=== PATIENT | male | born 1990 | race American Indian/Alaskan Native ===

== ENCOUNTER → 2020-02-08 | Outpatient (CLI) | payer OTHER ==
[~2020-02-08] MED LIST: Bactrim Ds Tab1 EACH PO; HYDACE5 PO; IBUP800 PO; META800 PO; QUET200 PO
[2020-02-08 13:34] LABS: BASOPHILS ABSOLUTE AUTO 0.02 K/mm3 (0.00-0.23); BASOPHILS PERCENT AUTO 0 % (0-2); EOSINOPHILS ABSOLUTE AUTO 0.08 K/mm3 (0.00-0.68); EOSINOPHILS PERCENT AUTO 1 % (0-6); Hematocrit 43.7 % (37.0-53.0); Hemoglobin 14.6 g/dL (13.5-17.5); IMMATURE GRAN ABSOLUTE AUTO 0.03 K/mm3 (0.00-0.10); IMMATURE GRAN PERCENT AUTO 0 % (0-1); LYMPHOCYTES ABSOLUTE AUTO 1.12 K/mm3 (0.84-5.20); LYMPHOCYTES PERCENT AUTO 14 % (21-46); MONOCYTES ABSOLUTE AUTO 0.65 K/mm3 (0.16-1.47); MONOCYTES PERCENT AUTO 8 % (4-13); Mean Corpuscular HGB Conc 33.4 g/dL (31.5-36.5); Mean Corpuscular Volume 93 fL (80-100); Mean Platelet Volume 9.4 fL (9.1-12.4); NEUTROPHILS ABSOLUTE AUTO 6.12 K/mm3 (1.96-9.15); NEUTROPHILS PERCENT AUTO 76 % (41-73); Platelet Count 282 K/mm3 (150-400); RDW Coefficient Variation 12.8 % (11.7-14.2); RDW Standard Deviation 43.8 fL (35.1-46.3); Red Blood Cell Count 4.71 M/mm3 (4.30-5.90); White Blood Cell Count 8.02 K/mm3 (4.00-11.30)
[2020-02-08 13:45] LABS: Alanine Aminotransfer (ALT/SGP 27 U/L (12-78); Albumin, Blood 4.3 g/dL (3.4-5.0); Albumin/Globulin Ratio 1.1 (0.8-1.8); Alk Phos 40 U/L (40-126); Anion Gap 8 mmol/L (6-16); Aspartate Aminotrans (AST/SGOT 18 U/L (12-37); Bilirubin, Total 0.3 mg/dL (0.1-1.0); Blood Urea Nitrogen 12 mg/dL (8-24); CO2, Blood 28 mmol/L (21-32); Chloride, Blood 102 mmol/L (98-108); Creatinine, Blood 1.34 mg/dL (0.60-1.20); Globulin, Blood 3.9 g/dL (2.2-4.0); Glomerular Filtration Rate >60 (60-); Glucose, Blood 93 mg/dL (70-99); Potassium, Blood 3.8 mmol/L (3.5-5.5); Sodium, Blood 138 mmol/L (136-145); Total Protein, Blood 8.2 g/dL (6.4-8.2)
[2020-02-09 21:06] LABS: CHLAMYDIA TRACHOMATIS, NAA Negative (Negative); NEISSERIA GONORRHOEAE, NAA Negative (Negative)
== END | disposition home or self-care (01) ==
LOC: LAB SHORT 13:30 → LAB EV 13:30
PROVIDERS: Physician Assistant
DX: N50.811 Right testicular pain (principal); R10.31 Right lower quadrant pain
CPT/HCPCS: 80053; 85025; 87086; 87491; 87591

== ENCOUNTER 2022-12-04 00:34 | Emergency (ER) | payer OTHER ==
[~2022-12-04] VITALS: Ht 177.8 cm; Wt 79.4 kg
[2022-12-04 01:03] VITALS: BP 127/83
[2022-12-04] MEDS ORDERED: CEPH500 PO (01:56)
== END 2022-12-04 02:12 | disposition home or self-care (01) ==
LOC: ER 00:34
DX: T15.02XA Foreign body in cornea, left eye, initial encounter (principal); L98.9 Disorder of the skin and subcutaneous tissue, unspecified; F17.210 Nicotine dependence, cigarettes, uncomplicated; X58.XXXA Exposure to other specified factors, initial encounter; Y92.89 Other specified places as the place of occurrence of the external cause; Y99.0 Civilian activity done for income or pay
CPT/HCPCS: 99283; A9270

== ENCOUNTER 2023-02-14 04:57 | Emergency (ER) | payer OTHER ==
[~2023-02-14] VITALS: Ht 180.3 cm; Wt 74.8 kg
[~2023-02-14 04:57] MED LIST changes: +CEPH500 PO
[2023-02-14] MEDS ORDERED: ERYT1OIN LEFTEYE (05:41)
[2023-02-14] MEDS ORDERED: Bactrim Ds Tab1 EACH PO (05:42)
[2023-02-14 05:59] VITALS: BP 143/94
== END 2023-02-14 05:50 | disposition home or self-care (01) ==
LOC: ER 04:57
DX: T15.02XA Foreign body in cornea, left eye, initial encounter (principal); L02.416 Cutaneous abscess of left lower limb; X58.XXXA Exposure to other specified factors, initial encounter
CPT/HCPCS: 99282; A9270